=== PATIENT | male | born 1945 | race Caucasian/White ===

== ENCOUNTER 2017-06-24 07:00 | Day surgery (SDC) | payer OTHER, MEDICARE ==
[~2017-06-24] VITALS: Ht 172.7 cm; Wt 68.5 kg
[~2017-06-24 07:00] MED LIST: ALBUTEROL0.83 MG/ML IH; ANTIVERT 25MG25 MG PO; ASPIRIN E.C. 8181 MG PO; ATROVENT I0.2 MG/1 M IH; BROVANA15 MCG/2 M IH; COREG 3.123.125 MG/T PO; HCTZ 25MG25 MG PO; LEVAQUIN 750MG750 M1 PO; LORTAB 5/500 501 TAB PO; NEXIUM 40MG40 MG PO; NEXIUM40 MG PO; PREDNISONE20 MG PO; PRINIVIL2.5 MG PO; PULMICORT0.25 MG/2 IH; REGLAN 5MG T5 MG/TAB PO; RT SPIRIVA18 MCG IH; SINGULAIR10 MG PO; THEO-24 20200 MG/CAP; ZANTAC 150150 MG PO; ZOCOR 20MG20 MG PO
[2017-06-24] MEDS ORDERED: UTIBRON NEOHALER IH (07:18)
[2017-06-24] MEDS ORDERED: FOLIC ACID800 MCG PO (07:19)
[2017-06-24] MEDS ORDERED: NORVASC 5MG5 MG/TAB PO (07:19)
[2017-06-24 07:31] VITALS: BP 127/108; PULSE 87; TEMP 97.4
[2017-06-24 09:10] VITALS: BP 109/79; PULSE 74; TEMP 97.5
[2017-06-24 09:25] VITALS: BP 117/86; PULSE 67
[2017-06-24 09:40] VITALS: BP 124/85; PULSE 67
== END 2017-06-24 09:58 | disposition home or self-care (01) ==
LOC: SDCO 07:00
DX: K51.00 Ulcerative (chronic) pancolitis without complications (principal); K64.4 Residual hemorrhoidal skin tags; I34.0 Nonrheumatic mitral (valve) insufficiency; K21.9 Gastro-esophageal reflux disease without esophagitis; I11.0 Hypertensive heart disease with heart failure; I50.9 Heart failure, unspecified; J44.9 Chronic obstructive pulmonary disease, unspecified; Z90.49 Acquired absence of other specified parts of digestive tract; Z87.891 Personal history of nicotine dependence
CPT/HCPCS: OP; J2704; J3010; J7030

== ENCOUNTER 2021-12-17 19:01 | Inpatient (IN) | payer MEDICARE ==
[~2021-12-17] VITALS: Ht 172.7 cm; Wt 70.8 kg
[~2021-12-17 19:01] MED LIST changes: +FOLIC ACID800 MCG PO; +NORVASC 5MG5 MG/TAB PO; +UTIBRON NEOHALER IH
[2021-12-17 19:26] LABS: COLLECTION METHOD CLEAN CATCH
[2021-12-17 19:32] LABS: BASO # 0.1 K/mm3 (0.0-0.2); BASO % 0.5 % (0.0-2.0); EOS % 0.4 % (0.0-4.0); GRAN # 8.3 K/mm3 (1.4-6.5); GRAN % 75.7 % (42.2-75.2); HEMATOCRIT 43.4 % (42.0-52.0); HEMOGLOBIN 14.9 g/dl (13.5-18.0); LYMPH # 1.5 K/mm3 (1.2-3.4); LYMPH % 13.2 % (20.0-51.0); MEAN CELL VOLUME 90 fl (80.0-100.0); MEAN CORPUSCULAR HEMOGLOBIN 31 pg (27-31); MEAN CORPUSCULAR HGB CONC 34 g/dl (33.0-37.0); MEAN PLATELET VOLUME 9.3 fl (7.4-10.4); MONO % 9.4 % (1.7-9.3); PLATELET COUNT 419 K/mm3 (130-400); RED BLOOD COUNT 4.83 M/mm3 (4.20-5.60); REDCELL DISTRIBUTION WIDTH-CV 12.2 % (11.5-14.5)
[2021-12-17 19:34] LABS: PH 8 (5-8); SQUAMOUS EPITHELIAL None Seen /hpf (0-10); URINE APPEARANCE Clear (CLEAR/HAZY); URINE BACTERIA None Seen /hpf (NONE SEEN); URINE BILIRUBIN Negative (NEGATIVE); URINE BLOOD Negative (NEGATIVE); URINE COLOR Yellow (YELLOW); URINE GLUCOSE Negative (NEGATIVE); URINE KETONE Negative (NEGATIVE); URINE LEUKOCYTE ESTERASE Negative (NEGATIVE); URINE NITRATE Negative (NEGATIVE); URINE PROTEIN(semi-quant) Negative (NEGATIVE); URINE RBC None Seen /hpf (0-2); URINE UROBILINOGEN Negative (NEGATIVE)
[2021-12-17 19:48] LABS: ALBUMIN 3.4 gm/dL (3.4-4.8); BILIRUBIN,TOTAL 0.5 mg/dL (0.2-1.2); C-REACTIVE PROTEIN 0.65 mg/dL (0.00-0.50); CALCIUM 8.8 mg/dL (8.4-10.2); CREATININE, serum 0.91 mg/dL (0.72-1.25); POTASSIUM 3.6 mmol/L (3.5-4.5); TOTAL PROTEIN 6.5 gm/dL (6.2-8.1)
[2021-12-17 22:40] VITALS: BP 140/63; PULSE 55; TEMP 98
[2021-12-17] MEDS ORDERED: TRELEGY ELLIPT1 EACH IH (23:05)
[2021-12-18 04:58] VITALS: BP 133/84; PULSE 63; TEMP 98
[2021-12-18] MEDS ORDERED: CIPRO PO (05:24)
[2021-12-18] MEDS ORDERED: FLAGYL PO (05:24)
[2021-12-18] MEDS ORDERED: PREDNISONE PO (05:25)
[2021-12-18 06:33] LABS: HEMATOCRIT 40.5 % (42.0-52.0); HEMOGLOBIN 13.6 g/dl (13.5-18.0); MEAN CELL VOLUME 93 fl (80.0-100.0); MEAN CORPUSCULAR HEMOGLOBIN 31 pg (27-31); MEAN CORPUSCULAR HGB CONC 34 g/dl (33.0-37.0); PLATELET COUNT 412 K/mm3 (130-400); RED BLOOD COUNT 4.38 M/mm3 (4.20-5.60); REDCELL DISTRIBUTION WIDTH-CV 12.1 % (11.5-14.5)
[2021-12-18 06:54] LABS: CREATININE, serum 0.83 mg/dL (0.72-1.25); POTASSIUM 3.9 mmol/L (3.5-4.5)
[2021-12-18 07:34] VITALS: BP 121/43; PULSE 67; TEMP 98.6
[2021-12-18 07:39] LABS: BAND 1 % (0-10); LYMPHOCYTE 9 % (20.0-51.0); NEUTROPHILS 88 % (42.0-75.2); PLATELET ESTIMATE NORMAL (NORMAL)
[2021-12-18 12:00] VITALS: BP 119/51; PULSE 67; TEMP 97.9
[2021-12-18 20:25] VITALS: BP 156/84; PULSE 62; TEMP 97.8
[2021-12-18 23:32] VITALS: BP 123/72; PULSE 64; TEMP 97.8
[2021-12-19] VITALS (11 sets, daily range): BP systolic 114–160; BP diastolic 65–83; PULSE 55–72; TEMP 97.2–98.9
[2021-12-19 05:54] LABS: BASO % 0.1 % (0.0-2.0); GRAN # 14.5 K/mm3 (1.4-6.5); GRAN % 88.3 % (42.2-75.2); HEMATOCRIT 42.4 % (42.0-52.0); HEMOGLOBIN 14.2 g/dl (13.5-18.0); LYMPH # 1.1 K/mm3 (1.2-3.4); LYMPH % 6.4 % (20.0-51.0); MEAN CELL VOLUME 93 fl (80.0-100.0); MEAN CORPUSCULAR HEMOGLOBIN 31 pg (27-31); MEAN CORPUSCULAR HGB CONC 34 g/dl (33.0-37.0); MONO # 0.7 K/mm3 (0.1-0.6); MONO % 4.3 % (1.7-9.3); PLATELET COUNT 455 K/mm3 (130-400); RED BLOOD COUNT 4.57 M/mm3 (4.20-5.60); REDCELL DISTRIBUTION WIDTH-CV 12.3 % (11.5-14.5)
[2021-12-19 06:10] LABS: CALCIUM 8.5 mg/dL (8.4-10.2); CREATININE, serum 0.86 mg/dL (0.72-1.25); POTASSIUM 3.9 mmol/L (3.5-4.5)
[2021-12-20] VITALS: BP 141/75; PULSE 64; TEMP 98.5
[2021-12-20 04:10] VITALS: BP 139/74; PULSE 55; TEMP 98.7
[2021-12-20 06:28] LABS: BASO % 0.2 % (0.0-2.0); GRAN # 10.8 K/mm3 (1.4-6.5); GRAN % 85.9 % (42.2-75.2); HEMATOCRIT 37.9 % (42.0-52.0); HEMOGLOBIN 12.8 g/dl (13.5-18.0); LYMPH # 0.9 K/mm3 (1.2-3.4); LYMPH % 7.1 % (20.0-51.0); MEAN CELL VOLUME 93 fl (80.0-100.0); MEAN CORPUSCULAR HEMOGLOBIN 31 pg (27-31); MEAN CORPUSCULAR HGB CONC 34 g/dl (33.0-37.0); MEAN PLATELET VOLUME 9.9 fl (7.4-10.4); MONO # 0.8 K/mm3 (0.1-0.6); MONO % 6.2 % (1.7-9.3); PLATELET COUNT 391 K/mm3 (130-400); RED BLOOD COUNT 4.09 M/mm3 (4.20-5.60); REDCELL DISTRIBUTION WIDTH-CV 12.5 % (11.5-14.5)
[2021-12-20 06:49] LABS: CALCIUM 8.3 mg/dL (8.4-10.2); CREATININE, serum 0.8 mg/dL (0.72-1.25); POTASSIUM 3.9 mmol/L (3.5-4.5)
[2021-12-20 08:00] VITALS: BP 150/74; PULSE 58; TEMP 97.6
[2021-12-20 11:55] VITALS: BP 137/67; PULSE 66; TEMP 97.6
[2021-12-20] MEDS ORDERED: AZULFIDINE500 MG/TAB PO (13:08)
[2021-12-20] MEDS ORDERED: ENTOCORT EC3 MG PO (13:09)
== END 2021-12-20 14:06 | disposition home or self-care (01) | DRG 386 ==
LOC: COL.ER 19:01 → SURG 21:14
PROVIDERS: Family Medicine; Internal Medicine Gastroenterology; Student in an Organized Health Care Education/Training Program; ADMIT Internal Medicine
PROC: 0DBB8ZX Excision of Ileum, Via Natural or Artificial Opening Endoscopic, Diagnostic (ICD-10-PCS; 2021-12-19)
PROC: 0DBC8ZX Excision of Ileocecal Valve, Via Natural or Artificial Opening Endoscopic, Diagnostic (ICD-10-PCS; 2021-12-19)
PROC: 0DBH8ZX Excision of Cecum, Via Natural or Artificial Opening Endoscopic, Diagnostic (ICD-10-PCS; principal; 2021-12-19 08:00)
DX: K51.90 Ulcerative colitis, unspecified, without complications (principal); K56.7 Ileus, unspecified; I10 Essential (primary) hypertension; K52.9 Noninfective gastroenteritis and colitis, unspecified; J43.9 Emphysema, unspecified; R09.02 Hypoxemia; K64.0 First degree hemorrhoids; K21.9 Gastro-esophageal reflux disease without esophagitis; K44.9 Diaphragmatic hernia without obstruction or gangrene; E78.5 Hyperlipidemia, unspecified; D72.829 Elevated white blood cell count, unspecified; T38.0X5A Adverse effect of glucocorticoids and synthetic analogues, initial encounter; Z87.891 Personal history of nicotine dependence; Z79.52 Long term (current) use of systemic steroids; Z79.82 Long term (current) use of aspirin; Z23 Encounter for immunization; Z99.81 Dependence on supplemental oxygen
CPT/HCPCS: 99223-AI; 99232-AI; 99239; J0744; J1650; J2405; J2704; J2765; J2930; J3010; J7030; J7120; Q9967